=== PATIENT | male | born 1985 | race Caucasian/White ===

== ENCOUNTER 2019-11-27 01:27 | Emergency (ER) | payer MEDICAID ==
[~2019-11-27] VITALS: Ht 180.3 cm; Wt 143.8 kg
[2019-11-27 01:35] VITALS: Ht 180.3 cm; Wt 143.8 kg
[2019-11-27 02:50] VITALS: BP 120/63
== END 2019-11-27 02:50 | disposition home or self-care (01) ==
LOC: ED 01:27
DX: K21.9 Gastro-esophageal reflux disease without esophagitis (principal)
CPT/HCPCS: Q0162